=== PATIENT | female | born 1985 | race Caucasian/White ===

== ENCOUNTER 2018-07-01 20:34 | Emergency (ER) | payer OTHER, SELFPAY ==
[2018-07-01 20:34] VITALS: BMI 32.1
[2018-07-01 21:30] VITALS: TEMP 98.5; O2SAT 100
--- NOTE | 2018-07-01 21:53 | ED PDOC ---
HPI: Abdomen Time Seen by Provider: 07/01/18 21:38 Chief Complaint (Nursing): Abdominal Pain Chief Complaint (Provider): Lower abdominal pain History Per: Patient History/Exam Limitations: no limitations Onset/Duration Of Symptoms: Days (x2) Current Symptoms Are (Timing): Still Present Associated Symptoms: Nausea, Vomiting Additional Complaint(s): 32 year old female presents to the ED complaining of constant lower abdominal pain for 2 days. Patient is also reporting lower back pain for a couple of weeks and has intermittent chest pain that comes and goes. She is also complaining of nausea and vomiting that she has had every day because she is 6 weeks . She also states having mild intermittent headaches and a mild headache this afternoon which she took Motrin for. She indicates she feels better and headache is mild. Denies dizziness, weakness, numbness, difficulty breathing, and vaginal bleeding. Patient is , is 6 weeks , and has not had an ultrasound done for this . PMD: none Past Medical History Reviewed: Historical Data, Nursing Documentation, Vital Signs Vital Signs: Last Vital Signs Temp 98.5 F 07/01/18 21:26 Pulse 69 07/02/18 00:57 Resp 16 07/01/18 21:26 BP 114/73 07/01/18 21:26 Pulse Ox 100 07/02/18 00:57 - Medical History PMH: No Chronic Diseases - Surgical History Surgical History: - Family History Family History: States: Unknown Family Hx - Home Medications Home Medications: Ambulatory Orders Medication Instructions Recorded Ca/Cholecalciferol/Fe/Folic 1 1 tab PO DAILY 06/25/15 [Basic's Vitamins] Benzocaine/Menthol SHELTER [Dermoplast] 1 sprays TOP PRN PRN #0 aero 06/29/15 Ibuprofen [Motrin Tab] 600 mg PO Q8 #0 tab 06/29/15 - Allergies Allergies/Adverse Reactions: Allergies Allergy/AdvReac Type Severity Reaction Status Date / Time No Known Allergies Allergy Verified 07/01/18 21:26 Review of Systems ROS Statement: Except As Marked, All Systems Reviewed And Found Negative Respiratory: Negative for: Other (Difficulty breathing) Gastrointestinal: Positive for: Nausea, Vomiting, Abdominal Pain (lower) Genitourinary Female: Negative for: Vaginal Bleeding Musculoskeletal: Positive for: Back Pain (lower) Neurological: Positive for: Headache. Negative for: Weakness, Numbness, Dizziness Physical Exam - Reviewed Nursing Documentation Reviewed: Yes Vital Signs Reviewed: Yes - Physical Exam Appears: Positive for: Non-toxic, No Acute Distress Head Exam: Positive for: ATRAUMATIC, NORMOCEPHALIC Skin: Positive for: Normal Color, Warm, Dry Eye Exam: Positive for: Normal appearance Neck: Positive for: Normal, Painless ROM Cardiovascular/Chest: Positive for: Regular Rate, Rhythm. Negative for: Murmur Respiratory: Positive for: Normal Breath Sounds. Negative for: Wheezing, Respiratory Distress Gastrointestinal/Abdominal: Positive for: Tenderness (suprapubic) Back: Positive for: Normal Inspection. Negative for: L CVA Tenderness, R CVA Tenderness Extremity: Positive for: Normal ROM Neurologic/Psych: Positive for: Alert, Oriented. Negative for: Motor/Sensory Deficits - Laboratory Results Result Diagrams: 07/01/18 22:05 07/01/18 22:05 - ECG ECG Rhythm: Positive for: Normal QRS, Sinus Rhythm. Negative for: ST/T Changes Rate: 69 O2 Sat by Pulse Oximetry: 100 (RA) Pulse Ox Interpretation: Normal - Progress Re-evaluation Time: 00:53 Condition: Re-examined, Improved Medical Decision Making Medical Decision Making: Initial Impression: Abdominal pain; with associated chest pain. Differentials include ectopic or other complication such as threatened or UTI. For chest pain, differentials include ACS which is less likely or PE. Initial Plan: --ECG --BMP --Troponin --ED urine --ED urine dipstick --CBC --Tylenol 650mg PO --Duplex US --OB transvaginal US 00:23 Duplex US FINDINGS: Right deep veins: Unremarkable. No DVT in the right common femoral, femoral, proximal deep femoral or popliteal veins. The veins demonstrate normal color flow, are normally compressible, with normal phasic flow and/or augmentation response. Right superficial veins: Unremarkable. No thrombus in the visualized right great saphenous vein. Left deep veins: Unremarkable. No DVT in the left common femoral, femoral, proximal deep femoral or popliteal veins. The veins demonstrate normal color flow, are normally compressible, with normal phasic flow and/or augmentation response. Left superficial veins: Unremarkable. No thrombus in the visualized left great saphenous vein. Soft tissues: No acute findings. No popliteal cyst. IMPRESSION: There is no DVT 00:24 OB transvaginal US FINDINGS: Gestation: There is a single live intrauterine in a sonographic gestational age 6 weeks 3 days, THIERRY February 21, 2019. Embryonic heart rate 117 beats per minute. Placenta/amniotic fluid: No visible subchorionic hemorrhage. Uterus/cervix: Cervical length is 3.2 cm and the internal os is closed. No myometrial mass. Ovaries: There is a likely corpus luteum cyst of the right ovary measuring a maximum of 1.4 cm. Normal Doppler flow of the ovaries. No mass. Free fluid: No free fluid. IMPRESSION: 1. There is a single live intrauterine in a sonographic gestational age 6 weeks 3 days, THIERRY February 21, 2019. 2. No visible subchorionic hemorrhage. 3. There is a likely corpus luteum cyst of the right ovary measuring a maximum of 1.4 cm. Scribe Attestation: Documented by Ventura Leiva acting as a scribe for Shirley Puga MD. Provider Scribe Attestation: All medical record entries made by the Scribe were at my direction and personally dictated by me. I have reviewed the chart and agree that the record accurately reflects my personal performance of the history, physical exam, medical decision making, and the department course for this patient. I have also personally directed, reviewed, and agree with the discharge instructions and disposition. Disposition - Clinical Impression Clinical Impression: Abdominal pain during , Chest pain - Patient ED Disposition Is Patient to be Admitted: No Doctor Will See Patient In The: Office Counseled Patient/Family Regarding: Studies Performed, Diagnosis, Need For Followup - Disposition [facility] Disposition: Routine/Home Disposition Time: 00:54 Condition: GOOD Additional Instructions: ELIZ ORDONEZ, thank you for letting us take care of you today. Your provider was Shirley Puga MD and you were treated for 6 WKS PREG HEADACHE. The emergency medical care you received today was directed at your acute symptoms. If you were prescribed any medication, please fill it and take as directed. It may take several days for your symptoms to resolve. Return to the Emergency Department if your symptoms worsen, do not improve, or if you have any other problems. Please contact your doctor or call one of the physicians/clinics you have been referred to that are listed on the Patient Visit Information form that is included in your discharge packet. Bring any paperwork you were given at discharge with you along with any medications you are taking to your follow up visit. Our treatment cannot replace ongoing medical care by a primary care provider outside of the emergency department. Thank you for allowing the [facility] team to be part of your care today. If you had an X-Ray or CT scan: A Radiologist will review the ED reading if any change in treatment is needed we will contact you. If you had a blood, urine, or wound culture: It will take several days for the results, if any change in treatment is needed we will contact you. If you had an STI test: It will take 48 hours for the results. Please call after 1 week if you have not heard back. Instructions: Threatened Miscarriage, Chest Pain (DC) Print Language: WOLOF - POA Present On Arrival: None
[2018-07-01 22:11] LABS: BASO # 0.1 K/uL (0.0-0.2); BASO % 0.8 % (0.0-2.0); EOS # 0.1 K/uL (0.0-0.7); EOS % 1.4 % (0.0-4.0); HEMOGLOBIN 14.3 g/dL (12.0-16.0); LYMPH # 2.9 K/uL (1.0-4.3); LYMPH % 28.7 % (20.0-40.0); MEAN CELL VOLUME 87.4 fl (81.0-99.0); MEAN CORPUSCULAR HEMOGLOBIN 29.9 pg (27.0-31.0); MEAN CORPUSCULAR HGB CONC 34.2 g/dL (33.0-37.0); MEAN PLATELET VOLUME 8.6 fl (7.2-11.7); MONO # 0.7 K/uL (0.0-0.8); MONO % 6.9 % (0.0-10.0); NEUT # 6.4 K/uL (1.8-7.0); NEUT % 62.2 % (50.0-75.0); NRBC % 0.1 % (0.0-0.0); RBC 4.8 Mil/uL (3.80-5.20); RED CELL DISTRIBUTION WIDTH 13.7 % (11.5-14.5); WHITE BLOOD COUNT 10.3 K/uL (4.8-10.8)
[2018-07-01 22:17] LABS: BLOOD UREA NITROGEN 6 mg/dl (7-17); CALCIUM 9.7 mg/dL (8.4-10.2); GFR NON-AFRICAN AMERICAN > 60
[2018-07-02 01:05] VITALS: BP 102/51; PULSE 74; RESP 20
--- NOTE | 2018-07-02 07:29 | CARD ---
APPROVED REPORT Date of service: 07/01/2018 EKG Measurement Heart [id number] <Conclusion> Sinus rhythm with short OK ST & T wave abnormality, consider anterior ischemia Abnormal ECG
--- NOTE | 2018-07-02 12:37 | US ---
Date of service: 07/01/2018 PROCEDURE: Bilateral lower extremity venous duplex Doppler. HISTORY: leg pain COMPARISON: None available. TECHNIQUE: Bilateral common femoral, superficial femoral, popliteal and posterior tibial veins were evaluated. Flow was assessed with color Doppler, compressibility, assessment of phasic flow and augmentation response. FINDINGS: COMMON FEMORAL VEIN: Right CFV: Unremarkable. Left CFV: Unremarkable. SUPERFICIAL FEMORAL VEIN: Right SFV: Unremarkable. Left SFV: Unremarkable. POPLITEAL VEIN: Right Popliteal: Unremarkable. Left Popliteal: Unremarkable. POSTERIOR TIBIAL VEIN: Right PTV: Unremarkable. Left PTV: Unremarkable. OTHER FINDINGS: None. IMPRESSION: No evidence of deep venous thrombosis. Concordant results (preliminary interpretation) provided by [facility]. Procedure Completed: 23:31 Preliminary ([facility]) Report: Dictated and Authenticated: 00:23. Final Interpretation: 12:35 July 02, 2018.
--- NOTE | 2018-07-02 12:40 | US ---
Date of service: 07/01/2018 PROCEDURE: First trimester ultrasound HISTORY: Lower abdominal pain. COMPARISON: None available. TECHNIQUE: Standard protocol for this study/examination. FINDINGS: LMP: 04/24/2018 Prior examinations from the current : None TECHNIQUE: Real-time 2D imaging, duplex and color Doppler. FINDINGS: Cardiac activity: Present Rate: 117 BPM Measurements: [place] rump length: 0.57 cm Gestational age based on CRL 6 weeks 2 days Gestational age 6 weeks 4 days based on gestational sac measurement 2.1 cm Gestational age derived from LMP: 9 weeks 5 days THIERRY based on LMP: 01/29/2019. THIERRY based on biometry: 03/20/2019. Yolk sac identified Cervix: No Cervical abnormalities: Negative examination for cervical dilatation or effacement. Closed cervix measuring 3.23 cm Subchorionic hemorrhage: None UTERUS: 5.3 x 6.1 x 7.4 cm. ADNEXA: Right: 1.9 x 2.4 x 3.1 cm. Simple cyst 1.3 x 1.4 cm Normal Doppler arterial waveform documented. Left: 1.5 x 1.9 x 2.5 cm. Normal Doppler arterial waveform documented Fluid in the cul-de-sac: IMPRESSION: Six weeks 3 days live intrauterine gestation. Concordant results (preliminary interpretation) provided by [facility]. Procedure Completed: 23:15 Preliminary ([facility]) Report: Dictated and Authenticated: 00:24. Final Interpretation: 12:38. July 02, 2018.
== END 2018-07-02 01:36 | disposition home or self-care (01) ==
LOC: H.ER 20:34
DX: O26.91 Pregnancy related conditions, unspecified, first trimester (principal); R10.2 Pelvic and perineal pain; R07.9 Chest pain, unspecified; Z3A.01 Less than 8 weeks gestation of pregnancy

== ENCOUNTER 2018-07-08 07:29 | Emergency (ER) | payer MEDICAID, OTHER ==
[2018-07-08 07:31] VITALS: BMI 27.4
[2018-07-08 07:56] VITALS: O2SAT 98
--- NOTE | 2018-07-08 08:14 | ED PDOC ---
HPI: Abdomen Time Seen by Provider: 07/08/18 08:01 Chief Complaint (Nursing): Female Genitourinary Chief Complaint (Provider): abdominal pain and vaginal discharge History Per: Patient History/Exam Limitations: no limitations Onset/Duration Of Symptoms: Days (x2) Current Symptoms Are (Timing): Still Present Quality Of Discomfort: Cramping Associated Symptoms: denies: Urinary Symptoms (dusyria or frequency) Additional Complaint(s): Sylvia Harvey is a 32 year old female, with no significant past medical history , who presents to the emergency department complaining of a pink discharge associated with mild lower abdominal cramping onset for x2 days. Patient was seen last week for lower abdominal pain. She is known to have an IUD approximately for x7 weeks. She denies any fever, chills, dysuria or frequency. No further medical complaints. PMD: None provided. Past Medical History Reviewed: Historical Data, Nursing Documentation, Vital Signs Vital Signs: Last Vital Signs Temp 98 F 07/08/18 07:35 Pulse 80 07/08/18 07:35 Resp 20 07/08/18 07:35 BP 123/77 07/08/18 07:35 Pulse Ox 98 07/08/18 08:21 - Medical History PMH: No Chronic Diseases - Surgical History Surgical History: - Family History Family History: States: Unknown Family Hx - Social History Current smoker - smoking cessation education provided: No Alcohol: None Drugs: Denies - Immunization History Hx Tetanus Toxoid Vaccination: No Hx Influenza Vaccination: No Hx Pneumococcal Vaccination: No - Home Medications Home Medications: Ambulatory Orders Medication Instructions Recorded Ca/Cholecalciferol/Fe/Folic 1 1 tab PO DAILY 06/25/15 [Basic's Vitamins] Benzocaine/Menthol ASSISTED [Dermoplast] 1 sprays TOP PRN PRN #0 aero 06/29/15 Ibuprofen [Motrin Tab] 600 mg PO Q8 #0 tab 06/29/15 - Allergies Allergies/Adverse Reactions: Allergies Allergy/AdvReac Type Severity Reaction Status Date / Time No Known Allergies Allergy Verified 07/08/18 08:00 Review of Systems ROS Statement: Except As Marked, All Systems Reviewed And Found Negative Constitutional: Negative for: Fever, Chills Gastrointestinal: Positive for: Abdominal Pain (mild lower cramping) Genitourinary Female: Positive for: Vaginal Discharge (pink). Negative for: Dysuria, Frequency Physical Exam - Reviewed Nursing Documentation Reviewed: Yes Vital Signs Reviewed: Yes - Physical Exam Appears: Positive for: No Acute Distress Head Exam: Positive for: ATRAUMATIC, NORMOCEPHALIC Skin: Positive for: Normal Color, Warm, Dry Eye Exam: Positive for: Normal appearance Neck: Positive for: Painless ROM Cardiovascular/Chest: Positive for: Regular Rate, Rhythm. Negative for: Murmur Respiratory: Positive for: Normal Breath Sounds. Negative for: Respiratory Distress Gastrointestinal/Abdominal: Positive for: Normal Exam, Soft. Negative for: Tenderness Pelvic Exam: Negative for: Active Bleeding, Mass, Tender Adnexa Extremity: Positive for: Normal ROM (upper and lower extremities). Negative for : Deformity, Swelling Neurologic/Psych: Positive for: Alert, Oriented - ECG O2 Sat by Pulse Oximetry: 98 (RA) Pulse Ox Interpretation: Normal Medical Decision Making Medical Decision Making: Time: 08:01 Initial Plan: --Type and screen --Beta-HCG, Quantitative --Urine dipstick --Reevaluation ----- Scribe Attestation: Documented by Bryant Wagoner, acting as a scribe for Navin Camejo MD. Provider Scribe Attestation: All medical record entries made by the Scribe were at my direction and personally dictated by me. I have reviewed the chart and agree that the record accurately reflects my personal performance of the history, physical exam, medical decision making, and the department course for this patient. I have also personally directed, reviewed, and agree with the discharge instructions and disposition. Disposition - Clinical Impression Clinical Impression: Threatened miscarriage - Patient ED Disposition Is Patient to be Admitted: No Counseled Patient/Family Regarding: Studies Performed, Diagnosis, Need For Followup, Rx Given - Disposition Referrals: [facility] [Outside] Disposition: Routine/Home Disposition Time: 11:53 Condition: FAIR Instructions: Threatened Miscarriage Forms: [employer] (Ugandan) Print Language: SAMOAN
[2018-07-08 12:03] VITALS: BP 120/70; PULSE 76; RESP 16; TEMP 98.1
== END 2018-07-08 12:01 | disposition home or self-care (01) ==
LOC: H.ER 07:29
DX: O20.0 Threatened abortion (principal)

== ENCOUNTER 2019-02-12 11:58 | Emergency (ER) | payer MEDICAID, SELFPAY ==
[2019-01-14 16:36] VITALS: BMI 27.4
--- NOTE | 2019-02-12 17:37 | OBHP ---
Datetime: 02/12/2019 12:25 IP Adm Impression: Term, intrauterine IP Admit Plan: Observation/Evaluation; Discharge home Admit Comment, IP Provider: HPI: Sylvia is a 33 year old at 39.1 with GDMA1 who is here complain ing of painful contractions that began at 8 this morning. No vaginal bleeding, LOF, reporting good fe pratik movement. History 3 previous NSVDs Problems Diet controlled gestational diabetes, well controlled PMH Denies PSH Denies Medications PNV Allergies NKDA Social No tobacco, alcohol or drug use Family History Not significant PHYSICAL EXAM Vitals reviewed labs unvailable ASSESSMENT/PLAN: 33 year old here at 39.1 for rule out labor. Patient is minimally dilated wi th sparse contractions, offered discharge vs observation and patient would like to stay. Reactive NST . Update 14:00 - patient is feeling better and requesting discharge, no repeat cervical exam since c ontractions had improved. NST remained reactive. Patient has induction scheduled for tomorrow morning . Plan discussed with attending Dr. Leavitt. Linda Banuelos MD OB Fellow OB Hospitalist Addendum: Pt seen by me. Agree w/ above. 38 yo at 39+4 wks w/ GDM, contro lled w/ diet w/ false labor. NST reactive. Pt discharged home and told to return to hospital tomorr ow for schduled induction of labor. (ES) Abdomen - PN: Normal Lungs - PN: Normal Heart - PN: Normal Neurologic - PN: Normal HEENT - PN: Normal General - PN: Normal Presentation-Admit: Vertex IP Fetus A Comments: Reactive NST FHR - Baseline A Provider: 125 Contraction Comments Provider: Q10-15 Gestation - Est Wks by US: 39.1 EGA AdmitDate IP: 39.1 Vital Signs Provider: Reviewed; Within Normal Limits IP Chief Complaint: Uterine contractions NICHD Variability Prov Fetus A: Moderate 6-25bpm NICHD Accel Fetus A IP Provider: 15X15 FHR Category Provider Fetus A: Category I NICHD Decel Fetus A IP Provider: None Dilatation, Provider: 1 Effacement, Provider: 20 Station, Provider: -3 Genitourinary Exam: Normal
--- NOTE | 2019-02-12 17:37 | OBDCSUM ---
Datetime: 02/12/2019 14:17 Discharged to, Provider: Home Follow up at, Provider: [facility] Disch Instr Activity: Normal activity; May be up to bathroom; May be up for meals; May Shower Disch Instr Diet: Regular Discharge Time: 02/12/2019 14:25 Follow up in weeks, Provider: LAURA at 8am 02/13/2019 Disch Referrals: None Discharge Diagnosis Prov Other: false labor at 39+1 wks
[2019-02-12 18:57] VITALS: BP 100/61; PULSE 72; TEMP 97.5
== END 2019-02-12 14:35 | disposition home or self-care (01) ==
LOC: H.EROB2 11:58
DX: O26.93 Pregnancy related conditions, unspecified, third trimester (principal); R10.2 Pelvic and perineal pain; Z3A.39 39 weeks gestation of pregnancy; O24.410 Gestational diabetes mellitus in pregnancy, diet controlled

== ENCOUNTER 2019-02-13 07:12 | Inpatient (IN) | payer MEDICAID, SELFPAY ==
[2019-02-13 08:49] VITALS: BMI 29.7
[2019-02-13] MEDS: Lactated Ringer's 1,000 ML IV SCH ×2 (09:15→17:15)
[2019-02-13] MEDS ORDERED: Lidocaine 1% Inj (20ml) ONE (09:40)
[2019-02-13 09:55] LABS: BASO # 0.1 K/uL (0.0-0.2); EOS # 0.2 K/uL (0.0-0.7); LYMPH % 28.7 % (20.0-40.0); MONO # 0.5 K/uL (0.0-0.8)
[2019-02-13 10:00] LABS: BASO % 1.5 % (0.0-2.0); EOS % 2.4 % (0.0-4.0); LYMPH # 2.2 K/uL (1.0-4.3); MEAN CELL VOLUME 92.9 fl (81.0-99.0); MEAN CORPUSCULAR HEMOGLOBIN 30.8 pg (27.0-31.0); MEAN CORPUSCULAR HGB CONC 33.2 g/dL (33.0-37.0); MEAN PLATELET VOLUME 11.6 fl (7.2-11.7); MONO % 6.3 % (0.0-10.0); NEUT # 4.7 K/uL (1.8-7.0); NEUT % 61.1 % (50.0-75.0); NRBC % 0.2 % (0.0-0.0); RBC 4.2 Mil/uL (3.80-5.20); RED CELL DISTRIBUTION WIDTH 15.3 % (11.5-14.5); WHITE BLOOD COUNT 7.7 K/uL (4.8-10.8)
[2019-02-13] MEDS ORDERED: Oxytocin 30 UNIT in NS 500 ml 30 UNITS/500 ML BAG IV ONE (18:16)
[2019-02-13] MEDS ORDERED: OXYTOCIN/0.9 % NS 20 UNIT/1,000 ML BAG IV ONE (18:17)
[2019-02-14] MEDS ORDERED: Nalbuphine HCL 10 mg/ml Ampule IVP PRN (01:47)
[2019-02-14] MEDS ORDERED: Lactated Ringer's 1,000 ML IV SCH (02:30)
[2019-02-14] MEDS ORDERED: Fentanyl/Bupivacaine HCl 250 ML EPI ONE (02:34)
[2019-02-14] MEDS: Lactated Ringer's 1,000 ML IV SCH (03:23)
[2019-02-14] MEDS ORDERED: Bupivacaine HCl 0.5% PF (30 ml) Inj ONE (07:52)
--- NOTE | 2019-02-14 08:40 | OBADHP ---
Datetime: 02/14/2019 06:52 Presentation-Admit: Vertex FHR - Baseline A Provider: 150 Gestation - Est Wks by US: 39.3 Vital Signs Provider: Reviewed; Within Normal Limits NICHD Variability Prov Fetus A: Moderate 6-25bpm NICHD Accel Fetus A IP Provider: 15X15 FHR Category Provider Fetus A: Category I Dilatation, Provider: 4 Effacement, Provider: 90 Station, Provider: -3 Datetime: 02/13/2019 10:00 Admit Comment, IP Provider: HPI: 33 YO with IUP at EGA 39.2 Wks as per LMP 05/14/18, EDC 02/18 presents today for an scheduled induction due GDM. Patient denies VB, CONTX, and LOF. Patient end orses +FM. ROS: Unremarkable, except as per HPI. Patient also denies CANCHOLA, CP, SOB, dysuria, fever, chills or o ther acute medical complaint at present. Care Provider: Dr Maxwell Banuelos at [facility] OBGYN: [id number] Patient reports Gestational DM controlled with diet. First 2001, 2005, 2014-induction of labor due to [place]. PMH: Denies FMH: None SocialHx: Denies Tobacco/ETOH/Rec drug use. SURG: None Allergies: NKA MEDS: Vit LABS: HIV neg, RPR neg, GN/ CL neg, GBS neg 01/15, Rubella positive PE GEN: NAD, appears comfortable HEENT: NCAT RESP: CTA b/l CV: RRR, S1S2 present, no murmurs Abdomen: Gravid EXT: No edema [place]: isolated CONTX FHR: Reassuring 140s A/P 32 YO with IUP at EGA 39.2 wks. presenting for Induction due to GDM. Impression: Schedule IOL Plan -Admit to L_D -Maternal VS monitoring -FHR monitoring -Initiate IOL protocol Case discussed with attending MD Minh PGY1 Abdomen - PN: Normal Breast - PN: Not Done Lungs - PN: Normal Heart - PN: Normal General - PN: Normal Comments, ACOG Physical Exam: see triage note IP Hx Assessment: The History has been Reviewed and is Current IP Chief Complaint: Scheduled induction of labor NICHD Decel Fetus A IP Provider: None EGA AdmitDate IP: 39.2 IP Adm Impression: Term, intrauterine IP Admit Plan: Admit to unit; Initiate labor induction protocol Datetime: 02/12/2019 12:25 Neurologic - PN: Normal HEENT - PN: Normal IP Fetus A Comments: Reactive NST Contraction Comments Provider: Q10-15 Genitourinary Exam: Normal
--- NOTE | 2019-02-14 10:39 | OBDS ---
DELIVERY PERSONNEL Delivery Doctor: Boone Calvin MD Family Services Assistant: Lety Iraheta RN Anesthesiologist: Dr. Ross MATERNAL INFORMATION Delivery Anesthesia: Epidural Medications in Delivery: Pitocin 30 Estimated Blood Loss (ml): 150 Placenta Cultured: No Maternal Complications: None Provider Comments: 33 year old admitted at 39.2 for IOL secondary to GDMA1. Received pitocin ad ministration, progressed to at 09:23 of live male infact, position LOAover intact perineum with epidural anesthesia. was placed on maternal abdomen and delayed cord clamping was performed. A pgars 9_9, no excessive resuscitation required. No meconium or nuchal cord. Spontaneous delivery of p lacenta with 3-vessel cord. Perineum intact. EBL 50cc. Mom and are in stable condition and renata l be recovered in L_D. Attending Dr. Calvin was present for delivery. Linda Banuelos MD OB Fellow LABOR SUMMARY EDC: 02/18/2019 00:00 No. Babies in Womb: 1 Attempted: No (Annotations: Data stored by CPN on behalf of user) Labor Anesthesia: None (Annotations: Data stored by CPN on behalf of user) LABOR INFORMATION Reason for Induction: Other Reason for Induction Other: GDM Complete Dilatation: 02/14/2019 08:35 Cervical Ripening Agents: Cervidil Oxytocin: N/A Group B Beta Strep: Negative Steroids Given: None Reason Steroids Not Administered: Not Applicable MEMBRANES Membranes Rupture Method: Artificial (Annotations: Data stored by CPN on behalf of user) Rupture of Membranes: 02/14/2019 09:21 Length of Rupture (hrs): 0.03 Amniotic Fluid Color: Clear (Annotations: Data stored by CPN on behalf of user) Amniotic Fluid Amount: Small (Annotations: Data stored by CPN on behalf of user) Amniotic Fluid Odor: Normal (Annotations: Data stored by CPN on behalf of user) STAGES OF LABOR Stage 2 hrs: 0 Stage 2 min: 48 Stage 3 hrs: 0 Stage 3 min: 3 VAGINAL DELIVERY Episiotomy: None Laceration Extension: N/A Laceration Type: None Initial Vag Sponge Count: 10 Final Vag Sponge Count: 10 Initial Vag Sharps Count: 0 Final Vag Sharps Count: 0 Sponge Count Correct: Yes Sharps Count Correct: N/A BABY A INFORMATION Delivery Date/Time: 02/14/2019 09:23 Method of Delivery: Vaginal Born in Route : No : N/A Forceps: N/A Vacuum Extraction: N/A Shoulder Dystocia : No SHOULDER DYSTOCIA BABY A Delivery Date/Time: 02/14/2019 09:23 PRESENTATION/POSITION BABY A Presentation: Cephalic Cephalic Presentation: Vertex Breech Presentation: N/A PLACENTA INFORMATION BABY A Placenta Delivery Time : 02/14/2019 09:26 Placenta Method of Delivery: Spontaneous Placenta Status: Delivered SCORES BABY A Heart Rate 1 min: >100 bpm Resp Effort 1 min: Good Cry Reflex Irritability 1 min: Cough or Sneeze or Pulls Away Muscle Tone 1 min: Active Motion Color 1 min: Body [place], Extremities Blue Resuscitation Effort 1 min: Tactile Stimulation SCORE 1 MIN: 9 Heart Rate 5 min: >100 bpm Resp Effort 5 min: Good Cry Reflex Irritability 5 min: Cough or Sneeze or Pulls Away Muscle Tone 5 min: Active Motion Color 5 min: Body [place], Extremities Blue Resuscitation Effort 5 min: Tactile Stimulation SCORE 5 MIN: 9 INFORMATION BABY A Gestational Age at Delivery: 39.0 Gestational Status: Term Outcome : Liveborn Condition : Stable Sex: Male IDENTIFICATION/MEDS BABY A ID Band Location: Left Leg; Left Arm WEIGHT/LENGTH BABY A Birthweight (gms): 3539 Weight (lb): 7 Weight (oz): 13 CORD INFORMATION BABY A No. Cord Vessels: 3 Nuchal Cord : N/A Nuchal Cord Other: n/a True Knot: n/a Cord Blood Taken: N/A Suction: None ASSESSMENT BABY A Infant Complications: None Physical Findings at Delivery: Within Normal Limits Respirations: Appears Normal Staffing Consultant/ALS Called : No Infant Care By: Hui Transferred To: Remains with Mother
[2019-02-14] MEDS ORDERED: Benzocaine/Menthol SPRAY TOP PRN ×2 (13:07→13:47)
[2019-02-14] MEDS ORDERED: Oxycodone/Acetaminophen 5/325 mg Tab PO PRN ×4 (13:07→13:47)
--- NOTE | 2019-02-15 10:17 | OBPPN ---
Datetime: 02/15/2019 08:09 PP Pain Prov: Within normal limits PP Nausea Prov: Denies PP Flatus Prov: Yes PP BM Prov: No PP Breasts Prov: Not Done PP Heart Prov: Normal PP Lungs Prov: Normal PP Abdomen/Uterus Prov: Normal PP Lochia Prov: Not Done PP Vulva/Perineum Prov: Not Done PP Extremities Prov: Normal PP Progress Prov: Normal PP Impression Prov: Normal progression PP Plan Prov: Continue present management PP Progress Note Prov: 33 year old s/p NVD at 39.2 after IOL secondary to GDMA1. Patient seen a nd examined at bedside this morning. Patient has no complaints, denies pain at this time. Patient is ambulating w/o difficulties. Pt is breast and bottle feeding, she is tolerating regular diet. Lochia less than menses in volume. +Flatus, -BM. Denies fevers, chills, dizziness, chest pain, SOB, N/V/D, h ematuria or dysuria. VS: wnl Gen: NAD HEENT: NCAT Cardio: + S1S2, RRR Lungs: CTA B/L, no wheezes Abd: soft, appropriate tenderness to palpation, + BS, Uterus firm below level of umbilicus Ext: No edema, calves non tender Assessment: 33 year old s/p NVD at 39.2 after IOL secondary to GDMA1, PPD 1, with normal post progression. Plan: - and ambulation encouraged. - Ibuprofen 600 mg 1 tab Q 6h PRN mild pain -Acetaminophen 650 PO Q6h PRN pain -Continue vitamin Case discussed with attending A MD Dafne PGY1 Addendum by Dr. Calvin: I have evaluated the patient independently and I agree with the above Vital Signs Provider PP: Reviewed; Within Normal Limits
--- NOTE | 2019-02-16 12:43 | OBPPN ---
Datetime: 02/16/2019 07:34 PP Pain Prov: Within normal limits PP Nausea Prov: Denies PP Flatus Prov: Yes PP BM Prov: No PP Breasts Prov: Not Done PP Heart Prov: Normal PP Lungs Prov: Normal PP Abdomen/Uterus Prov: Normal PP Lochia Prov: Normal PP Vulva/Perineum Prov: Not Done PP CVA Tenderness Prov: Normal PP Extremities Prov: Normal PP Progress Prov: Normal PP Impression Prov: Normal progression PP Plan Prov: Continue present management PP Progress Note Prov: 33 year old s/p NVD at 39.2 after IOL secondary to GDMA1, PPD2. Patient seen and examined at bedside this morning. Patient has no complaints, denies pain at this time. Patie nt is ambulating w/o difficulties. Pt is breast and bottle feeding, she is tolerating regular diet. L ochia less than menses in volume. +Flatus, -BM. Denies fevers, chills, dizziness, chest pain, SOB, N/ V/D, hematuria or dysuria. VS: wnl Gen: NAD HEENT: NCAT Cardio: + S1S2, RRR Lungs: CTA B/L, no wheezes Abd: soft, appropriate tenderness to palpation, + BS, Uterus firm below level of umbilicus Ext: No edema, calves non tender Assessment: 33 year old s/p NVD at 39.2 after IOL secondary to GDMA1, PPD 2, with normal post progression. Plan: - and ambulation encouraged. -Ibuprofen 600 mg 1 tab Q 6h PRN mild pain -Acetaminophen 650 PO Q6h PRN pain -Continue vitamin Case discussed with attending MD Naresh PGY1 Addendum by Dr. Calvin: I have evaluated the patient independently and I agree with the above IP PP Procedures: None Vital Signs Provider PP: Reviewed; Within Normal Limits
--- NOTE | 2019-02-16 12:43 | OBDCSUM ---
Datetime: 02/16/2019 07:37 Discharged to, Provider: [facility] Instr Activity: Normal activity; May Shower Disch Instr Diet: Regular Discharge Diagnosis, Provider: Term Delivered Discharge Time: 02/16/2019 10:00 Follow up in weeks, Provider: 6 weeks Disch Referrals: None Disch Activity Restrictions: No exercising; No sexual activity; Nothing in vagina - [place], christelle monterroso Discharge Comment, Provider: 33 year old s/p NVD after IOL secondary to GDMA1. Delivered viable baby male on 02/14/19 with EGA: 39.3 weeks. : Male, 3539gm, 9/9 Post- D/C Summary: No complications during post- period. Lochia less than menses in vo lume. Pt able to pass gas, ambulate and pass urine. Tolerate regular diet, no CANCHOLA, CP, SOB, N/V, fever or other acute complaint at this time. Fundus firm below umbilicus level. Pt is hemodynamically stab le. Discharge Instructions given to patient: Encourage breast feeding PNV 1 tab PO daily May take Ibuprofen 600mg Q 6h prn for mild-mod pain if needed ED precautions: If excessive bleeding, pain that does not get relief, fever >100.4, palpitations, SOB, CP or other concerning symptom go to the ED PT was urged if feeling sad, mood swing, depression, neglect of baby, suicidal thoughts, homicidal thoughts go to ER or call 911 for help Pt should go to her Primary care doctor if experiencing difficulty with breast feeding F/U in 4-6 week for PP visit with [facility]. Case discussed with attending Cathy Cox, PGY1 Contraception after Delivery: Undecided
[2019-02-16 19:48] VITALS: BP 104/56; PULSE 58; RESP 20; TEMP 98.2; O2SAT 99
== END 2019-02-16 13:20 | disposition home or self-care (01) | DRG 560 ==
LOC: H.EROB2 07:12 → H.L&D 09:08 → H.OB/GYN 02-14 15:02
PROVIDERS: ADMIT Obstetrics & Gynecology; ATTEND Obstetrics & Gynecology
PROC: 10E0XZZ Delivery of Products of Conception, External Approach (ICD-10-PCS; principal; 2019-02-13)
PROC: 4A1HXCZ Monitoring of Products of Conception, Cardiac Rate, External Approach (ICD-10-PCS; 2019-02-13)
DX: O24.420 Gestational diabetes mellitus in childbirth, diet controlled (principal); Z37.0 Single live birth; Z3A.39 39 weeks gestation of pregnancy